=== PATIENT | male | born 1990 | race Caucasian/White ===

== ENCOUNTER 2022-11-29 14:04 | Emergency (ER) | payer OTHER ==
[~2022-11-29] VITALS: Ht 177.8 cm; Wt 81.6 kg
[2022-11-29 14:09] VITALS: BP 148/115
[2022-11-29] MEDS ORDERED: ALUMINUM HYD/MAG/SIMETHICONE 30 ML UDC PO ONE (14:15)
[2022-11-29] MEDS ORDERED: ONDANSETRON 4 MG/2 ML VIAL IVP ONE (14:15)
[2022-11-29] MEDS ORDERED: PHENobarbital 65 MG/ML VIAL IV ONE ×3 (14:15→19:40)
[2022-11-29] MEDS ORDERED: NACL 0.9% 1,000 ML IV ONE (14:15)
[2022-11-29] MEDS ORDERED: FAMOTIDINE 20 MG TAB PO ONE (14:25)
[2022-11-29] MEDS ORDERED: PHENobarbital 130 MG/ML VIAL ONE (14:31)
[2022-11-29 14:44] LABS: BASOPHILS % (AUTO) 0.6 % (0.0-2.0); EOSINOPHILS % (AUTO) 0.1 % (0.0-4.0); HEMATOCRIT 37.4 % (36-52); HEMOGLOBIN 12.5 g/dL (12.0-18.0); LYMPHOCYTES # (AUTO) 1.1 K/uL (2.0-11.5); LYMPHOCYTES % (AUTO) 17.5 % (20.5-51.1); MEAN CORPUSCULAR HEMOGLOBIN 32 pg (27-31); MEAN CORPUSCULAR HGB CONC 33 g/dL (33-37); MEAN CORPUSCULAR VOLUME 95.8 fL (80-94); MONOCYTES # (AUTO) 0.4 K/uL (0.8-1.0); MONOCYTES % (AUTO) 6.8 % (1.7-9.3); NEUTROPHILS # (AUTO) 4.6 K/uL (1.8-7.7); PLATELET COUNT (AUTO) 259 K/uL (140-450); RED BLOOD CELL COUNT(AUTO) 3.91 MIL/uL (4.20-6.10); RED CELL DISTRIBUTION WIDTH 14.9 % (11.6-13.7); WHITE BLOOD COUNT (AUTO) 6.2 K/uL (4.8-10.8)
[2022-11-29 15:14] LABS: ALBUMIN 4.2 g/dL (3.4-5.0); ANION GAP 19.6 (8-16); CARBON DIOXIDE 24.2 mmol/L (21-32); CREATININE 1.1 mg/dL (0.6-1.3); POTASSIUM 3.8 mmol/L (3.5-5.1); TOTAL BILIRUBIN 1.2 mg/dL (0.0-1.0)
--- NOTE | 2022-11-29 15:47 | NUR ---
PATIENT STATES HE FEELS A LITTLE BETTER, AFTER INTERVENTIONS
[2022-11-29] MEDS ORDERED: ACETAMINOPHEN EXTRA STRENGTH 500 MG TAB PO ONE (16:05)
[2022-11-29] MEDS ORDERED: ONDA-188 PO (16:12)
[2022-11-29] MEDS ORDERED: FAMO-90 PO (16:12)
[2022-11-29] MEDS ORDERED: LORazepam 2 MG/ML VIAL ONE (16:17)
--- NOTE | 2022-11-29 16:22 | NUR ---
WITNESSED TONIC CLONIC SEIZURE. PATIENT SEIZED FOR [address] OWENS AT BEDSIDE. ADMINISTERED 2MG ATIVAN IVP. PATIENT NOW POSTICTAL ON ROOM AIR. MILD ORAL BLEEDING NOTED, WILL CONTINUE TO MONITOR
[2022-11-29] MEDS ORDERED: LORazepam 2 MG/ML VIAL IVP ONE (16:25)
--- NOTE | 2022-11-29 18:10 | NUR ---
PATIENT AWAKE, STATES HE FEELS OKAY. WILL CONTINUE TO MONITOR.
--- NOTE | 2022-11-29 19:50 | NUR ---
Received orders for to administer phenobarbital, med not available. ERMD made aware and stated okay not to give at this time. Pt is awake alert and responsive, gait steady and denies any discomfort.
[2022-11-29 20:05] VITALS: BP 145/70
--- NOTE | 2022-11-29 20:05 | NUR ---
Patient discharged with v/s stable. Written and verbal after care instructions given and explained. New rx famotidine and pepcid. Patient verbalized understanding. Ambulatory with steady gait. Picked up by . All questions addressed prior to discharge. Advised to follow up with PMD.
== END 2022-11-29 20:05 | disposition home or self-care (01) ==
LOC: MED 14:04
DX: F10.239 Alcohol dependence with withdrawal, unspecified (principal); Y90.9 Presence of alcohol in blood, level not specified; Z79.899 Other long term (current) drug therapy
CPT/HCPCS: 36415; 80053; 83690; 85025; 96361; 96374; 96375; 99291; J2060; J2405; J2560; J7030